=== PATIENT | male | born 1985 | race Caucasian/White ===

== ENCOUNTER → 2020-09-08 16:15 | Outpatient (CLI) | payer BC, SELFPAY ==
--- NOTE | ~2020-09-08 | XR_ITS ---
EXAMINATION: XR shoulder LT min 2V DATE: 09/08/2020 16:31 INDICATION: Left shoulder pain. TECHNIQUE: 4 views of left shoulder were obtained. COMPARISON: None. FINDINGS: Bone alignment is normal. No fracture. Joint spaces are well maintained. IMPRESSION: 1. Normal left shoulder. Reviewed, dictated and finalized at location A. IFICATION WRITER IMPRESSION: 1. Normal left shoulder.
== END ==
PROVIDERS: PCP Family Medicine; Visit Provider Physician Assistant
DX: M25.512 Pain in left shoulder (principal)
CPT/HCPCS: 73030

== ENCOUNTER 2022-06-22 09:28 | Outpatient (CLI) | payer OTHER, SELFPAY ==
[2022-06-22 11:20] LABS: Influenza A QL RT-PCR Negative (Negative); Influenza B QL RT-PCR Negative (Negative); SARS-CoV-2 RNA PCR Negative
== END 2022-06-22 09:29 | disposition home or self-care (01) ==
LOC: ANHLAB 09:29
PROVIDERS: PCP Family Medicine; Visit Provider Physician Assistant
DX: R68.89 Other general symptoms and signs (principal); R05.9 Cough, unspecified; Z20.818 Contact with and (suspected) exposure to other bacterial communicable diseases
CPT/HCPCS: 87502; U0003; U0005

== ENCOUNTER 2023-07-01 00:52 | Day surgery (SDC) | payer OTHER, SELFPAY ==
[2023-06-17 10:50] VITALS: BMI 35.9
--- NOTE | 2023-06-29 09:57 | SUR.PREOP ---
Patient called regarding upcoming procedure. Message left on patient's voicemail regarding preop instructions, appointment times, and procedure prep.
[2023-07-01 11:32] VITALS: BMI 36.7
[2023-07-01 11:34] VITALS: BP 146/96; PULSE 104; RESP 18; TEMP 37.4; O2SAT 100
--- NOTE | 2023-07-01 11:35 | P.HP_ITS ---
History of Present Illness History of Present Illness Consent: Risks, benefits, and alternatives have been discussed and questions answered. Patient agrees to proceed with procedure. Chief complaint: Family history of colon polyps Narrative: Popeye Stiles is a 38 year old male presents for screening colonoscopy. Family history is significant the patient's father had colon polyps. Grandfather had colon cancer. Patient reports that his own weight appetite and bowel movements are normal. He denies abdominal pain. He has had no bleeding. He does have a history of anxiety. Review of Systems Review of Systems: review of systems noncontributory. [facility] Past Medical History Medical History CARI (generalized anxiety disorder) HLD (hyperlipidemia) Panic disorder with agoraphobia Surgical History Surgical History Status post repair of hydrocele Family History Family History Mother Hypertension Social History Social History Smoking status: Never smoker Second hand tobacco smoke exposure: No Alcohol intake: current Drinks per week: 1 Alcohol use details: rare 1-2 drinks per month Substance use: never Substance use type: does not use Living arrangements: with family Occupation/Education: occupation Gender identity (if verbalized by the patient): Male Sexual Orientation (if Verbalized by the Patient): Straight or Heterosexual Spiritual care concerns: No Meds Home Medications and Allergies Home Medications Medication Instructions Recorded Confirmed Type escitalopram oxalate 10 mg tablet 10 mg PO DAILY #30 tabs 04/08/23 07/01/23 Rx gabapentin 100 mg capsule 100 mg PO DAILY #30 caps 04/08/23 07/01/23 Rx Allergies Allergy/AdvReac Type Severity Reaction Status Date / Time No Known Allergies Allergy Verified 07/01/23 11:31 Vital Signs Vital Signs - 24 hr 07/01/23 11:34 Temperature 99.3 F Pulse Rate 104 H Respiratory Rate 18 Blood Pressure 146/96 H Pulse Oximetry 100 Oxygen Delivery Room Air Exam Narrative: Physical exam reveals patient to be alert. Vital signs stable. HEENT exam is unremarkable. Patient is anicteric. Lungs are clear to auscultation and percussion. Heart is without murmur or extra sounds. Abdomen bowel sounds are present soft nontender with no organomegaly. Digital external rectal exam is normal. Assessment and Plan Assessment and plan (1) Family history of colonic polyps: Code(s): Z83.719 - Family history of colon polyps, unspecified Status: Acute Assessment and Plan: Patient's father had colon polyps. Grandfather had colon cancer. Plan for surveillance colonoscopy at this time. Further recommendations may be given after endoscopy.
[2023-07-01] MEDS: LACTATED RINGERS 1,000 ML 150 ML IV CONT (11:43)
--- NOTE | 2023-07-01 12:35 | P.PNAN_ITS ---
Anes - Initial Pre Proc Eval Procedure: Operation Date: 07/01/23 12:30 Proposed Procedures p Colonoscopy - Abhi Galvez MD Date/Time: 07/01/23 12:35 Surgeon: Abhi Galvez MD Pre Op Diagnosis: Family history of colon polyps Patient Data Age: 38 Gender: M Height: 1.88 m Weight: 129.7 kg Last Vital Signs Temp 99.3 F 07/01/23 11:34 Pulse 104 H 07/01/23 11:34 Resp 18 07/01/23 11:34 BP 146/96 H 07/01/23 11:34 Pulse Ox 100 07/01/23 11:34 O2 Del Method Room Air 07/01/23 11:34 Allergies Allergy/AdvReac Type Severity Reaction Status Date / Time No Known Allergies Allergy Verified 07/01/23 11:31 Home Medications Medication Instructions Recorded Confirmed Type escitalopram oxalate 10 mg tablet 10 mg PO DAILY #30 tabs 04/08/23 07/01/23 Rx gabapentin 100 mg capsule 100 mg PO DAILY #30 caps 04/08/23 07/01/23 Rx Patient hx anesthesia problems: none Family hx anesthesia problems: none Results Review: All pre-operative results and documents have been reviewed as part of the pre- operative evaluation. [facility] Past Medical History Medical History CARI (generalized anxiety disorder) HLD (hyperlipidemia) Panic disorder with agoraphobia Surgical History Surgical History Status post repair of hydrocele Family History Family History Mother Hypertension Social History Social History Smoking status: Never smoker Second hand tobacco smoke exposure: No Alcohol intake: current Drinks per week: 1 Alcohol use details: rare 1-2 drinks per month Substance use: never Substance use type: does not use Living arrangements: with family Occupation/Education: occupation Gender identity (if verbalized by the patient): Male Sexual Orientation (if Verbalized by the Patient): Straight or Heterosexual Spiritual care concerns: No Anes - Eval Final PreProcedure Day of Procedure 07/01/23 12:35 Patient weight: obese Heart: regular rate and rhythm Lungs: clear to auscultation Airway: Mallampati scale class II Neurological: alert and oriented Last oral intake: >/= 8 hours ASA classification: II Emergent: no Anesthetic plan: proceed Anesthesia type and monitoring: general GIVS and standard monitoring Results Review: All pre-operative results and documents have been reviewed as part of the pre-op erative evaluation. Informed Consent: The patient's anesthetic plan and its attendant risks and benefits were discussed with the patient/family/POA. Questions were solicited and answers provided to the satisfaction of the patient/family/POA.
[2023-07-01 13:07] VITALS: BP 84/48; PULSE 78; RESP 17; O2SAT 97
[2023-07-01 13:17] VITALS: BP 86/54; PULSE 81; RESP 30; O2SAT 97
[2023-07-01 13:27] VITALS: BP 127/85; PULSE 73; RESP 18; O2SAT 96
== END 2023-07-01 14:09 | disposition home or self-care (01) ==
PROVIDERS: PCP Family Medicine; Visit Provider Internal Medicine Gastroenterology
PROC: 0DJD8ZZ Inspection of Lower Intestinal Tract, Via Natural or Artificial Opening Endoscopic (ICD-10-PCS; CPT 45378; principal; 2023-07-01 12:30)
DX: Z12.11 Encounter for screening for malignant neoplasm of colon (principal); K64.8 Other hemorrhoids; F41.1 Generalized anxiety disorder; F40.01 Agoraphobia with panic disorder; E66.9 Obesity, unspecified; Z68.36 Body mass index [BMI] 36.0-36.9, adult; F10.90 Alcohol use, unspecified, uncomplicated; Z83.719 Family history of colon polyps, unspecified; Z80.0 Family history of malignant neoplasm of digestive organs; Z79.899 Other long term (current) drug therapy
CPT/HCPCS: 45378; J2250; J2371; J2704; J7120